=== PATIENT | female | born 1985 | race Caucasian/White ===

== ENCOUNTER 2021-01-29 06:42 | Inpatient (IN) ==
[2021-01-29] MEDS ORDERED: NS 1000 ML 1,000 ML ONE ×2 (06:49→07:47)
[2021-01-29] MEDS ORDERED: NS 1000 ML 1,000 ML IV ONE ×2 (06:58→07:45)
[2021-01-29 07:00] VITALS: BMI 27.1
[2021-01-29 07:11] LABS: BASOPHILS # (AUTO) 0.1 X10^3/uL (0.0-0.1); BASOPHILS % (AUTO) 0.8 % (0.2-1.0); EOSINOPHILS % (AUTO) 0.1 % (0.9-2.9); HEMATOCRIT 34.5 % (36.0-47.0); HEMOGLOBIN 11.7 g/dL (12.0-16.0); LYMPHOCYTES # (AUTO) 0.6 X10^3/uL (1.3-2.9); LYMPHOCYTES % (AUTO) 3.2 % (21.0-51.0); MEAN CORPUSCULAR HEMOGLOBIN 31.2 pg (27.0-34.0); MEAN CORPUSCULAR HGB CONC 33.9 g/dL (33.0-35.0); MEAN CORPUSCULAR VOLUME 91.9 fL (80.0-100.0); MEAN PLATELET VOLUME 7.2 fL (7.4-11.0); MONOCYTES # (AUTO) 0.7 x10^3/uL (0.3-0.8); MONOCYTES % (AUTO) 3.6 % (0.0-13.0); NEUTROPHILS # (AUTO) 17.8 x10^3/uL (2.2-4.8); NEUTROPHILS % (AUTO) 92.3 % (42.0-75.0); PLATELET COUNT 324 X10^3/uL (150.0-450.0); RED BLOOD COUNT 3.76 X10^6/uL (3.5-5.4); RED CELL DISTRIBUTION WIDTH 13.4 % (11.6-16.5); WHITE BLOOD COUNT 19.3 X10^3/uL (3.6-10.0)
[2021-01-29 07:31] LABS: BLOOD UREA NITROGEN 7 mg/dL (7-18); CALCIUM 8.8 mg/dL (8.5-10.1); CARBON DIOXIDE 18.1 mmol/L (21-32); CHLORIDE 102 mmol/L (98-107); CREATININE 0.69 mg/dL (0.55-1.02); SODIUM 135 mmol/L (136-145); eGFR NON BLACK RACES > 60 (>60)
[2021-01-29 07:34] LABS: BAND NEUTROPHILS % 1 % (0-10); PLATELET MORPHOLOGY COMMENT NORMAL (NORMAL)
[2021-01-29 07:38] LABS: APPEARANCE,URINE HAZY (CLEAR); BILIRUBIN,URINE NEGATIVE (NEGATIVE); BLOOD/HEMOGLOBIN,URINE 5+ (NEGATIVE); COLOR,URINE YELLOW (YELLOW); GLUCOSE, URINE NEGATIVE (NEGATIVE); KETONES,URINE 3+ (NEGATIVE); LEUKOCYTE ESTERASE ,URINE 3+ (NEGATIVE); NITRITES,URINE NEGATIVE (NEGATIVE); PH,URINE 6.5 (5.0 - 8.0); PROTEIN,URINE 2+ (NEGATIVE); UROBILINOGEN,URINE NORMAL (NORMAL)
[2021-01-29 07:39] LABS: BACTERIA,URINE 2+ /HPF (NEGATIVE); SQUAMOUS EPITHELIAL CELL,UR NUMEROUS /HPF (NEGATIVE)
[2021-01-29] MEDS ORDERED: ANCEF VIAL 1 GRAM IVP ONE (07:44)
[2021-01-29] MEDS ORDERED: NS 100 ML IV 100 ML ONE (07:47)
[2021-01-29] MEDS ORDERED: ANCEF VIAL 1 GRAM ONE (07:47)
[2021-01-29 08:46] LABS: ALANINE AMINOTRANSFERASE 16 Units/L (12-78); ALKALINE PHOSPHATASE 176 Units/L (46-116); ASPARTATE AMINO TRANSFERASE 17 Units/L (15-37); TOTAL PROTEIN 6.7 g/dL (6.4-8.2)
[2021-01-29 08:47] LABS: ALBUMIN 2.6 g/dL (3.4-5.0); COR CA(FOR HYPOALB) 9.9 mg/dL (8.5-10.1)
[2021-01-29] MEDS ORDERED: PITOCIN IVP ONE (09:10)
[2021-01-29] MEDS ORDERED: PHENERGAN INJ 25 MG IM PRN ×2 (09:10→15:54)
[2021-01-29] MEDS ORDERED: REGLAN INJ 10 MG VIAL IVP PRN (09:10)
[2021-01-29] MEDS ORDERED: D5LR 1L W PITOCIN 10 UNITS/L 10 UNITS/1,000 ML BAG IV PRN (09:10)
[2021-01-29] MEDS ORDERED: BETADINE SOLN ONE (09:16)
[2021-01-29] MEDS ORDERED: PITOCIN ONE (09:16)
[2021-01-29] MEDS ORDERED: ANCEF 1 GRAM IV PREMIX* 1 G/50 ML BAG IV ONE (09:17)
[2021-01-29] MEDS ORDERED: STADOL INJ ONE (09:17)
[2021-01-29] MEDS ORDERED: D5 1/2 NS 1L W PITOCIN 20 UNITS/L 20 UNITS/1,000 ML BAG IV ONE (09:18)
[2021-01-29] MEDS ORDERED: FENTANYL INJ 100 mcg ONE ×2 (09:31→09:32)
[2021-01-29] MEDS ORDERED: LR 1000 ML IV 1,000 ML IV ONE (09:31)
[2021-01-29] MEDS ORDERED: NAROPIN EPIDURAL 0.2% 100 ML ONE (09:32)
[2021-01-29] MEDS ORDERED: STADOL INJ IVP PRN (09:44)
[2021-01-29] MEDS ORDERED: D5 1/2 NS 1000 ML 1,000 ML IV SCH (10:00)
--- NOTE | 2021-01-29 12:26 | DR.OB ---
OB Quick Note - Assessment/Plan Assessment/Plan: L&D 01/29/21 at 10:00 am S-No complaint except CTX. O-Afebrile,VSS SHE=153 with good LTV, +accel., no decel. CTX=q 2-5 min., mild to mod. by palpation CVX=3-4cm/50%/0/VTX AROM with light meconium. IUPC and FSE placed. No genital lesions. A-IUP at 39 4/7 weeks in active labor Fever with leukocytosis UTI AMA h/o genital herpes P-Begin pitocin augmentation IV ancef Anticipate
--- NOTE | 2021-01-29 12:29 | DR.OB ---
OB Quick Note - Assessment/Plan Assessment/Plan: L&D 01/29/21 at 12:05pm Pitocin=16 mu/min. Ancef S-No complaint. s/p epidural. O-Afebrile, VSS UGR=713 with good LTV, +accel, no decel. CTX=q 1 1/2 to 2 min., about 45-55mmHg CVX=4-5cm/50%/0 A-IUP at 39 4/7 weeks in labor AMA h/o genital herpes UTI Fever with leukocytosis P-Cont. pitocin/ancef Anticipate
[2021-01-29] MEDS ORDERED: MARCAINE or SENSORCAINE 0.25% WITH EPI IJ ONE (13:29)
[2021-01-29] MEDS ORDERED: ANCEF VIAL 1 GRAM IVP SCH (14:00)
--- NOTE | 2021-01-29 15:54 | DR.OB ---
OB Quick Note - Assessment/Plan Assessment/Plan: Delivery Note [employer] 01/29/21 at 15:34 Patient complete and pushing. Head delivered over intact perineum. Nose and mouth bulb suctioned. No nuchal cord. Body delivered over intact perineum. Cord clamped x 2 and cut. handed to attendant. Cord sent for gases. Placenta delivered spontaneously / intact / 3 vessel cord. No CVX tear. A small midline second degree tear noted and repaired with 0-vicryl in usual fashion. Viable female infant, VTX/OA, wt=7'12" and 9/9, stable to NBN. Mother stable to RR. ROI=840yg.
[2021-01-29] MEDS: D5 1/2 NS 1000 ML 1,000 ML with PITOCIN 20 UNITS IV SCH ×2 (16:00)
[2021-01-29] MEDS ORDERED: DERMOPLAST PAIN RELIEF SPRAY TOP PRN (16:47)
[2021-01-29] MEDS ORDERED: MILK OF MAGNESIA PO PRN (16:47)
[2021-01-29] MEDS ORDERED: AMBIEN PO PRN (16:47)
[2021-01-29] MEDS ORDERED: MOTRIN TAB 800 MG PO ONE (17:21)
[2021-01-29] MEDS: MOTRIN TAB 800 MG PO PRN (17:24)
[2021-01-29] MEDS ORDERED: ADACEL or BOOSTRIX TDaP VACCINE IM ONE (18:00)
[2021-01-29] MEDS: TYLENOL 500 MG TAB EXTRA STRENGTH PO PRN (20:30)
[2021-01-29] MEDS: ANCEF VIAL 1 GRAM IVP SCH (22:18)
[2021-01-30] MEDS: D5 1/2 NS 1000 ML 1,000 ML with PITOCIN 20 UNITS IV SCH ×2 (00:43)
[2021-01-30] MEDS: MOTRIN TAB 800 MG PO PRN ×2 (02:07→14:53)
[2021-01-30 05:21] LABS: HEMATOCRIT 30.9 % (36.0-47.0); HEMOGLOBIN 10.8 g/dL (12.0-16.0)
[2021-01-30] MEDS: ANCEF VIAL 1 GRAM IVP SCH ×2 (06:33→14:48)
[2021-01-30] MEDS: TYLENOL 500 MG TAB EXTRA STRENGTH PO PRN ×2 (10:04→22:11)
[2021-01-30] MEDS: PRENATAL PLUS PO SCH (10:07)
[2021-01-30] MEDS ORDERED: NS 50 ML IV + SPIKE MINIBAG* 50 ML IV ONE (14:21)
[2021-01-30] MEDS ORDERED: BACTRIM DS TAB PO ONE (16:06)
[2021-01-30] MEDS: BACTRIM DS TAB PO SCH ×2 (16:17→21:29)
[2021-01-31] MEDS: MOTRIN TAB 800 MG PO PRN (03:59)
[2021-01-31] MEDS: PRENATAL PLUS PO SCH (10:10)
[2021-01-31] MEDS: BACTRIM DS TAB PO SCH (10:10)
[2021-01-31 10:36] VITALS: BP 104/59
== END 2021-01-31 11:38 | disposition home or self-care (01) | DRG 806 ==
LOC: ER 06:42 → LD 09:10 → MED/SURG 16:48
PROVIDERS: ADMIT Specialist; ATTEND Specialist
DX: O76 Abnormality in fetal heart rate and rhythm complicating labor and delivery; A60.09 Herpesviral infection of other urogenital tract; O70.1 Second degree perineal laceration during delivery; O98.32 Other infections with a predominantly sexual mode of transmission complicating childbirth; Z20.822 Contact with and (suspected) exposure to COVID-19; O23.43 Unspecified infection of urinary tract in pregnancy, third trimester; Z23 Encounter for immunization; Z3A.39 39 weeks gestation of pregnancy; Z37.0 Single live birth